=== PATIENT | female | born 1950 | race Caucasian/White ===

== ENCOUNTER 2021-10-24 17:34 | Emergency (ER) | payer MEDICARE, OTHER ==
[~2021-10-24] VITALS: Ht 172.7 cm; Wt 99.1 kg
[2021-10-24] MEDS ORDERED: ULTRAM50 M1 PO (19:46)
[2021-10-24 19:58] VITALS: BP 139/92
== END 2021-10-24 20:50 | disposition home or self-care (01) ==
LOC: ED 17:34
DX: S00.03XA Contusion of scalp, initial encounter (principal); S73.102A Unspecified sprain of left hip, initial encounter; I10 Essential (primary) hypertension; W01.198A Fall on same level from slipping, tripping and stumbling with subsequent striking against other object, initial encounter; Y92.512 Supermarket, store or market as the place of occurrence of the external cause; Z86.718 Personal history of other venous thrombosis and embolism; Z86.711 Personal history of pulmonary embolism